=== PATIENT | female | born 1940 | race Hispanic/Latino ===

== ENCOUNTER 2021-09-09 21:49 | Emergency (ER) | payer MEDICARE ==
[~2021-09-09] VITALS: Ht 162.6 cm; Wt 56.7 kg
[2021-09-09] MEDS ORDERED: ONDANSETRON 4MG INJ IVP ONE (22:30)
[2021-09-09] MEDS ORDERED: LORAZEPAM 2 MG/ML 1 ML VIAL IVP ONE (22:30)
[2021-09-09 23:00] LABS: BASOPHILS % (AUTO) 0.6 % (0.0-5.0); EOSINOPHILS % (AUTO) 2.2 % (0.0-8.0); HEMATOCRIT 39.5 % (36-48); LYMPHOCYTES % (AUTO) 12.6 % (21.0-51.0); MEAN CORPUSCULAR HEMOGLOBIN 28.4 pg (27.0-33.0); MEAN CORPUSCULAR HGB CONC 33.2 g/dL (32.0-36.0); MEAN CORPUSCULAR VOLUME 85.5 fL (79-99); NEUTROPHILS % (AUTO) 77.2 % (40.0-77.0); PLATELET COUNT (AUTO) 199 K/uL (130-400); RED BLOOD CELL COUNT(AUTO) 4.62 MIL/uL (4.00-5.50); RED CELL DISTRIBUTION WIDTH 13.4 % (11.0-15.5); WHITE BLOOD COUNT (AUTO) 12.4 K/uL (4.8-10.8)
[2021-09-09 23:08] LABS: POTASSIUM 4.1 mmol/L (3.5-5.1)
[2021-09-09] MEDS ORDERED: ONDA4TAB10 PO (23:52)
[2021-09-10 00:26] VITALS: BP 138/68
== END 2021-09-10 00:28 | disposition home or self-care (01) ==
LOC: EDH 21:49
DX: I10 Essential (primary) hypertension (principal); R11.2 Nausea with vomiting, unspecified
CPT/HCPCS: 36415; 70450; 80048; 84484; 85025; 93005; 96374; 96375; 99285; J2060; J2405